=== PATIENT | male | born 1970 | race Caucasian/White ===

== ENCOUNTER 2017-06-22 21:21 | Emergency (ER) | payer BC ==
[2017-06-22] MEDS ORDERED: methylPREDNISolone Sodium Succinate 125 MG/2 ML SDV IVPUSH ONE (21:25)
--- NOTE | 2017-06-22 21:26 | EDM.PDOC ---
ED HPI GENERAL MEDICAL PROBLEM - General Chief Complaint: Allergic Reaction Stated Complaint: [id number] ALLERGIC REACTION Time Seen by Provider: 06/22/17 21:24 Source of Information: Reports: Patient History Limitations: Reports: No Limitations - History of Present Illness INITIAL COMMENTS - FREE TEXT/NARRATIVE: 47 yo white male c/o lower lip swelling since 7pm after taking generic acetaminophen. Previous episode to forehead after touching rat repellant to forehead one month ago. No SOB Pt. took 3 Benadryl tabs at home Onset: Today Onset Date: 06/22/17 Onset Time: 19:00 Duration: Hour(s): Location: Reports: Face Improves with: Reports: None Worsens with: Reports: None Associated Symptoms: Reports: No Other Symptoms Lower Lip Pain Score (Numeric/FACES): 5 - Related Data Allergies Allergy/AdvReac Type Severity Reaction Status Date / Time Penicillins Allergy Rash Verified 06/22/17 22:11 Home Meds: Home Meds Aspirin [Adult Low Dose Aspirin EC] 81 mg PO DAILY 10/04/13 [History] Hydrochlorothiazide/Lisinopril [Lisinopril-HCTZ 20-12.5 MG] 1 tab PO DAILY 10/04 [History] Lysine HCl [l-Lysine] 500 mg PO DAILY 10/04/13 [History] Multivitamin [Multi Vitamin Daily] 2 each PO DAILY 10/04/13 [History] Sertraline [Zoloft] 50 mg PO DAILY 10/04/13 [History] Sildenafil [Viagra] 50 mg PO BEDTIME PRN 10/04/13 [History] Simvastatin [Zocor] 40 mg PO DAILY 10/04/13 [History] traZODone 50 mg PO BEDTIME 10/04/13 [History] ED ROS ALLERGIC REACTION - Review of Systems Review Of Systems: See Below Constitutional: Reports: No Symptoms HEENT: Reports: No Symptoms Respiratory: Reports: No Symptoms Cardiovascular: Reports: No Symptoms Endocrine: Reports: No Symptoms GI/Abdominal: Reports: No Symptoms : Reports: No Symptoms Musculoskeletal: Reports: No Symptoms Skin: Reports: Other (lower lip swelling) Neurological: Reports: No Symptoms Psychiatric: Reports: No Symptoms Hematologic/Lymphatic: Reports: No Symptoms Immunologic: Reports: No Symptoms ED EXAM GENERAL NO PERIP PULSE - Physical Exam Exam: See Below Exam Limited By: No Limitations General Appearance: Alert, No Apparent Distress Eye Exam: Bilateral Eye: EOMI, PERRL Ears: Normal External Exam Nose: Normal Inspection Throat/Mouth: Other (lower lip swelling) Head: Atraumatic, Normocephalic Neck: Normal Inspection Respiratory/Chest: No Respiratory Distress, Lungs Clear Cardiovascular: Normal Peripheral Pulses GI/Abdominal: Normal Bowel Sounds, Soft Back Exam: Normal Inspection, Full Range of Motion Extremities: Normal Inspection, Normal Range of Motion Neurological: Alert, Oriented, CN II-XII Intact, Normal Cognition, Normal Gait Psychiatric: Normal Affect Skin Exam: Warm, Dry, Intact, Normal Color Lymphatic: No Adenopathy Course - Vital Signs Last Recorded V/S: Last Vital Signs Temp 36.2 C 06/22/17 22:20 Pulse 77 06/22/17 22:20 Resp 18 06/22/17 22:20 BP 139/86 06/22/17 22:20 Pulse Ox 96 06/22/17 22:20 - Orders/Labs/Meds Orders: Active Orders 24 hr Category Date Time Status Sodium Chloride 0.9% [Normal Saline] 1,000 ml Med 06/22/17 21:30 Active IV ASDIRECTED Medication Orders Sodium Chloride (Normal Saline) 1,000 mls @ 150 mls/hr IV ASDIRECTED JOYCELYN Last Admin: 06/22/17 21:37 Dose: 150 mls/hr Meds: Medications Generic Name Dose Route Start Last Admin Trade Name Freq PRN Reason Stop Dose Admin Sodium Chloride 1,000 mls @ 150 mls/hr 06/22/17 21:30 06/22/17 21:37 Normal Saline IV 150 mls/hr ASDIRECTED JOYCELYN Administration Discontinued Medications Generic Name Dose Route Start Last Admin Trade Name Freq PRN Reason Stop Dose Admin Methylprednisolone Sodium Succinate 125 mg 06/22/17 21:25 06/22/17 21:31 Solu-Medrol IVPUSH 06/22/17 21:26 125 mg ONETIME ONE Administration Departure - Departure Time of Disposition: 22:33 Disposition: Home, Self-Care 01 Condition: Good Clinical Impression: Angioedema of lips Qualifiers: Encounter type: initial encounter Qualified Code(s): T78.3XXA - Angioneurotic edema, initial encounter - Discharge Information Forms: ED Department Discharge Additional Instructions: Rest Take MEDROL DOSE PETROS 4mg Increase intake of Water Apply Ice to Lower Lip F/U w/ PCP - My Orders Last 24 Hours: My Active Orders 06/22/17 21:30 Sodium Chloride 0.9% [Normal Saline] 1,000 ml IV ASDIRECTED - Assessment/Plan Last 24 Hours: My Active Orders 06/22/17 21:30 Sodium Chloride 0.9% [Normal Saline] 1,000 ml IV ASDIRECTED
[2017-06-22] MEDS ORDERED: Sodium Chloride 0.9% 1,000 ML IV SCH (21:30)
== END 2017-06-22 22:59 | disposition home or self-care (01) ==
LOC: DL.ED 21:21
DX: T78.3XXA Angioneurotic edema, initial encounter (principal); Z88.0 Allergy status to penicillin; Z79.82 Long term (current) use of aspirin; Z79.899 Other long term (current) drug therapy
CPT/HCPCS: 96361; 96374; 99284; J2930; J7030

== ENCOUNTER 2024-09-25 12:42 | Emergency (ER) | payer BC ==
[2024-09-25] MEDS: predniSONE 20 MG Tab PO ONE (13:09)
[2024-09-25] MEDS: Azithromycin 250 MG Tab PO ONE (13:09)
== END 2024-09-25 13:20 | disposition home or self-care (01) ==
LOC: DL.ED 12:42
DX: J06.9 Acute upper respiratory infection, unspecified (principal); I10 Essential (primary) hypertension; E78.00 Pure hypercholesterolemia, unspecified; Z88.0 Allergy status to penicillin; Z79.82 Long term (current) use of aspirin; Z79.899 Other long term (current) drug therapy
CPT/HCPCS: 87428-QW; 99283; 99284; A9270-GY; J7512